=== PATIENT | female | born 1970 | race Caucasian/White ===

== ENCOUNTER 2017-07-10 19:13 | Inpatient (IN) | payer OTHER ==
[~2017-07-10] VITALS: Ht 160 cm; Wt 57.1 kg
[2017-07-10] MEDS ORDERED: ENOX40DI9 SQ (19:37)
[2017-07-10] MEDS ORDERED: CHLO25 IM (19:37)
[2017-07-10] MEDS ORDERED: BENZ1TAB10 PEG (19:37)
[2017-07-10] MEDS ORDERED: LEVE250T55 PEG (19:37)
[2017-07-10] MEDS ORDERED: LACO100 PEG (19:37)
[2017-07-10] MEDS ORDERED: HALO1 PEG (19:37)
[2017-07-10] MEDS ORDERED: BENZ0.5T6 PO (19:37)
[2017-07-10] MEDS ORDERED: METO25 PEG (19:37)
[2017-07-10] MEDS ORDERED: HALO2 PEG (19:37)
[2017-07-10 19:50] LABS: BASOPHILS # (AUTO) 0.07 K/uL (0.00-0.20); BASOPHILS % (AUTO) 0.4 % (0.0-2.0); EOSINOPHILS # (AUTO) 0.06 K/uL (0.00-0.70); EOSINOPHILS % (AUTO) 0.38 % (1.0-6.0); HEMATOCRIT 41.5 % (36-46); HEMOGLOBIN 14.1 g/dL (12.0-16.0); LYMPHOCYTES % (AUTO) 12.4 % (22.0-44.0); MEAN CORPUSCULAR HEMOGLOBIN 34.4 pg (26.0-34.0); MEAN CORPUSCULAR HGB CONC 34.1 G/dL (31.0-37.0); MEAN CORPUSCULAR VOLUME 101 fL (80-100); MONOCYTES # (AUTO) 0.5 K/uL (0.1-1.0); MONOCYTES % (AUTO) 3.1 % (2.0-9.0); NEUTROPHILS # (AUTO) 13.5 K/uL (1.8-7.7); NEUTROPHILS % (AUTO) 83.6 % (40.0-70.0); PLATELET COUNT (AUTO) 292 K/uL (150-450); RED BLOOD CELL COUNT(AUTO) 4.11 MIL/uL (4.00-5.20); RED CELL DISTRIBUTION WIDTH 12.2 % (11.5-14.5)
[2017-07-10 20:00] LABS: ANION GAP 12 mmol/L (8-16); CALCIUM, TOTAL 10.1 mg/dL (8.8-10.5); CARBON DIOXIDE 25 mmol/L (22-29); CHLORIDE 103 mmol/L (98-107); CREATININE 1.17 mg/dL (0.60-1.30); GLOMERULAR FILTR. RATE CALC 50 mL/min (>60); GLUCOSE,RANDOM 114 mg/dL (70-110); SODIUM SERUM 140 mmol/L (136-145); UREA NITROGEN, BLOOD 12 mg/dL (7-18)
[2017-07-10 20:07] LABS: ALANINE AMINOTRANSFERASE 42 U/L (12-78); ALBUMIN 3.3 g/dL (3.4-5.0); ALKALINE PHOSPHATASE 105 U/L (46-116); ASPARTATE AMINOTRANSFERASE 81 U/L (15-37); BILIRUBIN,TOTAL 0.5 mg/dL (0.1-1.0); TOTAL PROTEIN, SERUM 7.4 g/dL (6.4-8.2)
[2017-07-10] MEDS ORDERED: SODIUM CHLORIDE 0.9% 1,000 ML IV ONE (21:30)
[2017-07-10] MEDS ORDERED: ACETAMINOPHEN 500 MG TABLET PO ONE (21:45)
[2017-07-10 22:54] LABS: APPEARANCE,URINE CLOUDY (CLEAR); BILIRUBIN,URINE NEGATIVE (NEGATIVE); GLUCOSE, URINE (UA) NEGATIVE (NEGATIVE); KETONES,URINE 40 mg/dL (NEGATIVE); LEUKOCYTE ESTERASE ,URINE MODERATE (NEGATIVE); NITRATE,URINE NEGATIVE (NEGATIVE); OCCULT BLOOD,URINE LARGE (NEGATIVE); PH,URINE 5.5 (5.0-8.0); PROTEIN,URINE SEE CONFIRM (NEGATIVE); UROBILINOGEN,URINE 0.2 mg/dL (<=1.0)
[2017-07-10 22:59] LABS: AMPHET/METH SCREEN,URINE NEGATIVE (NEGATIVE); BARBITURATE SCREEN, URINE NEGATIVE (NEGATIVE); BENZODIAZEPINES SCREEN,URINE NEGATIVE (NEGATIVE); CANNABINOID SCREEN,URINE NEGATIVE (NEGATIVE); COCAINE SCREEN,URINE NEGATIVE (NEGATIVE); METHADONE SCREEN, URINE NEGATIVE (NEGATIVE); OPIATE SCREEN,URINE NEGATIVE (NEGATIVE)
[2017-07-10] MEDS ORDERED: ALBUTEROL SULFATE 2.5 MG/0.5 ML NEB SOLUTION NEB PRN (23:00)
[2017-07-10] MEDS ORDERED: ACETAMINOPHEN 325 MG TABLET PO PRN (23:00)
[2017-07-10] MEDS ORDERED: ONDANSETRON HCL 4 MG/2 ML VIAL IVP PRN (23:00)
[2017-07-10] MEDS ORDERED: MAGNESIUM HYDROXIDE SUSPENSION 30 ML UDCUP PO PRN (23:00)
[2017-07-10] MEDS ORDERED: LORazepam 2 MG/ML VIAL IVP ONE (23:00)
[2017-07-10] MEDS ORDERED: DEXTROSE 5%-0.45% SODIUM CHL 1,000 ML IV ONE (23:00)
[2017-07-10 23:03] LABS: PHENCYCLIDINE SCREEN,URINE NEGATIVE (NEGATIVE)
[2017-07-10 23:07] LABS: BACTERIA,URINE Few /HPF (None Seen); SQUAMOUS EPITHELIAL CELL,UR Few /LPF (None Seen); SULFOSALICYLIC ACID,URINE 1+ (Negative)
[2017-07-10] MEDS ORDERED: CefTRIAXone 1 GM/DEXTROSE 50 ML IV ONE (23:45)
[2017-07-10] MEDS: LevETIRAcetam 500 MG in DEXTROSE 5%-WATER 100 ML IV SCH (23:50)
[2017-07-11] VITALS (7 sets, daily range): BP systolic 106–153; BP diastolic 56–91
[2017-07-11] MEDS: HEPARIN SODIUM,PORCINE 5,000 UNITS/ML VIAL SQ SCH ×4 (00:02→22:58)
[2017-07-11] MEDS ORDERED: PNEUMOCOCCAL VACCINE POLYVALENT 0.5 ML VIAL [PPSV23] IM ONE (01:15)
[2017-07-11] MEDS ORDERED: INFLUENZA VIRUS VACCINE QVS 2017-18 (3YR+)/PF 60 MCG/0.5 ML SYRINGE IM ONE (01:15)
[2017-07-11] MEDS: DOCUSATE SODIUM 100 MG CAPSULE PO SCH ×2 (09:24→20:14)
[2017-07-11] MEDS: LACOSAMIDE 100 MG TABLET PO SCH ×2 (09:25→20:14)
[2017-07-11] MEDS: LORazepam 2 MG/ML VIAL IVP PRN ×3 (09:27→17:31)
[2017-07-11] MEDS: PANTOPRAZOLE SODIUM 40 MG/VIAL IVP SCH (09:27)
[2017-07-11] MEDS: LevETIRAcetam 500 MG in DEXTROSE 5%-WATER 100 ML IV SCH ×2 (10:54→22:26)
[2017-07-11] MEDS: CefTRIAXone SODIUM 2 GM in DEXTROSE 5%-WATER 50 ML IV SCH (16:45)
[2017-07-12 04:58] VITALS: BP 104/74
[2017-07-12 07:08] VITALS: BP 131/88
[2017-07-12] MEDS: DOCUSATE SODIUM 100 MG CAPSULE PO SCH ×2 (08:34→20:25)
[2017-07-12] MEDS: LACOSAMIDE 100 MG TABLET PO SCH ×2 (08:34→20:25)
[2017-07-12] MEDS: PANTOPRAZOLE SODIUM 40 MG/VIAL IVP SCH (08:34)
[2017-07-12] MEDS: HEPARIN SODIUM,PORCINE 5,000 UNITS/ML VIAL SQ SCH ×2 (08:35→16:49)
[2017-07-12] MEDS: LORazepam 2 MG/ML VIAL IVP PRN ×3 (08:53→17:42)
[2017-07-12 11:27] VITALS: BP 132/75
[2017-07-12] MEDS: LevETIRAcetam 500 MG in DEXTROSE 5%-WATER 100 ML IV SCH ×2 (11:28→21:28)
[2017-07-12 15:01] VITALS: BP 115/79
[2017-07-12 16:19] LABS: BASOPHILS % (AUTO) 0.4 % (0.0-2.0); EOSINOPHILS % (AUTO) 3.4 % (1.0-6.0); HEMATOCRIT 36.7 % (36-46); HEMOGLOBIN 12.5 g/dL (12.0-16.0); LYMPHOCYTES # (AUTO) 2.1 K/uL (1.0-4.8); LYMPHOCYTES % (AUTO) 26.1 % (22.0-44.0); MEAN CORPUSCULAR HEMOGLOBIN 34.6 pg (26.0-34.0); MEAN CORPUSCULAR HGB CONC 34.1 G/dL (31.0-37.0); MEAN CORPUSCULAR VOLUME 101 fL (80-100); MONOCYTES # (AUTO) 0.5 K/uL (0.1-1.0); MONOCYTES % (AUTO) 6.4 % (2.0-9.0); NEUTROPHILS # (AUTO) 5.1 K/uL (1.8-7.7); NEUTROPHILS % (AUTO) 63.7 % (40.0-70.0); PLATELET COUNT (AUTO) 245 K/uL (150-450); RED BLOOD CELL COUNT(AUTO) 3.62 MIL/uL (4.00-5.20); RED CELL DISTRIBUTION WIDTH 11.8 % (11.5-14.5)
[2017-07-12 16:31] LABS: ANION GAP 10 mmol/L (8-16); CALCIUM, TOTAL 9.5 mg/dL (8.8-10.5); CARBON DIOXIDE 28 mmol/L (22-29); CHLORIDE 104 mmol/L (98-107); CREATININE 0.77 mg/dL (0.60-1.30); GLOMERULAR FILTR. RATE CALC > 60 mL/min (>60); GLUCOSE,RANDOM 106 mg/dL (70-110); POTASSIUM 3.8 mmol/L (3.5-5.1); SODIUM SERUM 142 mmol/L (136-145); UREA NITROGEN, BLOOD 8 mg/dL (7-18)
[2017-07-12 16:36] LABS: ALANINE AMINOTRANSFERASE 38 U/L (12-78); ALKALINE PHOSPHATASE 103 U/L (46-116); ASPARTATE AMINOTRANSFERASE 61 U/L (15-37); BILIRUBIN,TOTAL 0.3 mg/dL (0.1-1.0); TOTAL PROTEIN, SERUM 7.1 g/dL (6.4-8.2)
[2017-07-12] MEDS: CefTRIAXone SODIUM 2 GM in DEXTROSE 5%-WATER 50 ML IV SCH (16:49)
[2017-07-12 19:23] VITALS: BP 119/78
[2017-07-12] MEDS ORDERED: RisperiDONE 1 MG TABLET PO SCH (21:00)
[2017-07-13] MEDS: HEPARIN SODIUM,PORCINE 5,000 UNITS/ML VIAL SQ SCH ×4 (00:40→23:54)
[2017-07-13 00:42] VITALS: BP 118/74
[2017-07-13 05:09] VITALS: BP 126/84
[2017-07-13 07:38] VITALS: BP 137/84
[2017-07-13] MEDS ORDERED: MAGNESIUM HYDROXIDE SUSPENSION 30 ML UDCUP NG PRN (07:56)
[2017-07-13] MEDS ORDERED: RisperiDONE 1 MG TABLET NG SCH (07:56)
[2017-07-13] MEDS: LACOSAMIDE 100 MG TABLET NG SCH ×2 (08:10→21:21)
[2017-07-13] MEDS: PANTOPRAZOLE SODIUM 40 MG/VIAL IVP SCH (08:10)
[2017-07-13] MEDS: DOCUSATE SODIUM 100 MG CAPSULE PO SCH ×2 (10:06→21:21)
[2017-07-13] MEDS: LevETIRAcetam 500 MG in DEXTROSE 5%-WATER 100 ML IV SCH ×2 (10:12→22:33)
[2017-07-13 11:08] VITALS: BP 114/79
[2017-07-13] MEDS: LORazepam 2 MG/ML VIAL IVP PRN (13:37)
[2017-07-13 15:01] VITALS: BP 137/67
[2017-07-13] MEDS: CefTRIAXone SODIUM 2 GM in DEXTROSE 5%-WATER 50 ML IV SCH (16:20)
[2017-07-13 19:26] VITALS: BP 138/96
[2017-07-13] MEDS: RisperiDONE 2 MG TABLET NG SCH (21:21)
[2017-07-13] MEDS ORDERED: SODIUM CHLORIDE 0.9% 500 ML IV ONE (22:26)
[2017-07-14] VITALS (7 sets, daily range): BP systolic 106–159; BP diastolic 63–80
[2017-07-14] MEDS: LORazepam 2 MG/ML VIAL IVP PRN (02:00)
[2017-07-14] MEDS: PANTOPRAZOLE SODIUM 40 MG/VIAL IVP SCH (09:15)
[2017-07-14] MEDS: HEPARIN SODIUM,PORCINE 5,000 UNITS/ML VIAL SQ SCH ×2 (09:15→16:17)
[2017-07-14] MEDS: DOCUSATE SODIUM 100 MG CAPSULE PO SCH ×2 (09:34→20:54)
[2017-07-14] MEDS: RisperiDONE 2 MG TABLET NG SCH (09:34)
[2017-07-14] MEDS: LACOSAMIDE 100 MG TABLET NG SCH (09:34)
[2017-07-14] MEDS: LevETIRAcetam 500 MG in DEXTROSE 5%-WATER 100 ML IV SCH (09:58)
[2017-07-14] MEDS: HALOPERIDOL 5 MG TABLET PO PRN ×2 (12:32→18:52)
[2017-07-14] MEDS ORDERED: LOPE1LIQ PO (15:14)
[2017-07-14] MEDS ORDERED: LIPA1CAP28 GT (15:14)
[2017-07-14] MEDS ORDERED: THIA100 GT (15:14)
[2017-07-14] MEDS ORDERED: MULT-735 GT (15:14)
[2017-07-14] MEDS ORDERED: ENOX40DI9 SQ (15:14)
[2017-07-14] MEDS ORDERED: FOLI1 GT (15:14)
[2017-07-14] MEDS ORDERED: PROTEASE GT SCH (15:45)
[2017-07-14] MEDS ORDERED: HALOPERIDOL 2 MG TABLET PEG PRN (15:45)
[2017-07-14] MEDS ORDERED: LIPASE GT SCH (15:45)
[2017-07-14] MEDS ORDERED: AMYLASE GT SCH (15:45)
[2017-07-14] MEDS ORDERED: [UNRECOGNIZED DRUG - OTHER] GT SCH (15:45)
[2017-07-14] MEDS ORDERED: HALOPERIDOL 1 MG TABLET PEG SCH (16:00)
[2017-07-14 16:01] LABS: FREE T4 (FREE THYROXINE) 0.83 ng/dL (0.76-1.46); THYROID STIMULATING HORMONE 3.6 uIU/mL (0.36-3.74)
[2017-07-14] MEDS: METOPROLOL TARTRATE 25 MG TABLET PEG SCH ×2 (16:17→20:54)
[2017-07-14] MEDS: CefTRIAXone SODIUM 2 GM in DEXTROSE 5%-WATER 50 ML IV SCH (16:17)
[2017-07-14] MEDS: AMYLASE/LIPASE/PROTEASE 60/12/38 MU DR CAPSULE GT SCH ×2 (17:14→20:53)
[2017-07-14] MEDS: LevETIRAcetam 500 MG TABLET PEG SCH (20:54)
[2017-07-14] MEDS: RisperiDONE 3 MG TABLET NG SCH (20:55)
[2017-07-14] MEDS: BENZTROPINE MESYLATE 0.5 MG TABLET PO SCH (20:56)
[2017-07-14] MEDS: LACOSAMIDE 100 MG TABLET PEG SCH (20:56)
[2017-07-14] MEDS ORDERED: LevETIRAcetam 1,500 MG in DEXTROSE 5%-WATER 100 ML IV SCH (23:00)
[2017-07-15] MEDS: AMYLASE/LIPASE/PROTEASE 60/12/38 MU DR CAPSULE GT SCH ×6 (00:05→20:34)
[2017-07-15] MEDS: HEPARIN SODIUM,PORCINE 5,000 UNITS/ML VIAL SQ SCH ×3 (00:05→16:46)
[2017-07-15 03:37] VITALS: BP 123/71
[2017-07-15] MEDS: ACETAMINOPHEN 650 MG/20.3 ML SOLUTION UDCUP NG PRN (03:45)
[2017-07-15] MEDS: BENZTROPINE MESYLATE 1 MG TABLET PEG PRN (03:45)
[2017-07-15 07:28] VITALS: BP 112/77
[2017-07-15] MEDS: PANTOPRAZOLE SODIUM 40 MG/VIAL IVP SCH (08:26)
[2017-07-15] MEDS: MULTIVITAMINS, THERAPEUTIC 15 ML UDCUP GT SCH (08:26)
[2017-07-15] MEDS: FOLIC ACID 1 MG TABLET GT SCH (08:27)
[2017-07-15] MEDS: THIAMINE HCL 100 MG TABLET GT SCH (08:27)
[2017-07-15] MEDS: LACOSAMIDE 100 MG TABLET PEG SCH ×2 (08:27→20:33)
[2017-07-15] MEDS: METOPROLOL TARTRATE 25 MG TABLET PEG SCH ×3 (08:28→20:33)
[2017-07-15] MEDS: LevETIRAcetam 500 MG TABLET PEG SCH ×2 (08:28→20:34)
[2017-07-15] MEDS: DOCUSATE SODIUM 100 MG CAPSULE PO SCH ×2 (08:28→20:33)
[2017-07-15] MEDS: RisperiDONE 3 MG TABLET NG SCH ×2 (08:28→20:33)
[2017-07-15] MEDS: LORazepam 2 MG/ML VIAL IVP PRN (08:32)
[2017-07-15 11:38] VITALS: BP 115/75
[2017-07-15 17:30] VITALS: BP 138/72
[2017-07-15] MEDS: CefTRIAXone SODIUM 2 GM in DEXTROSE 5%-WATER 50 ML IV SCH (18:03)
[2017-07-15] MEDS ORDERED: LEVE500T53 PEG (18:21)
[2017-07-15 20:27] VITALS: BP 111/74
[2017-07-15] MEDS: BENZTROPINE MESYLATE 0.5 MG TABLET PO SCH (20:33)
[2017-07-15] MEDS: VALPROIC ACID 250 MG/5 ML SYRUP UDCUP PEG SCH (20:34)
[2017-07-16 00:18] VITALS: BP 98/58
[2017-07-16] MEDS: HEPARIN SODIUM,PORCINE 5,000 UNITS/ML VIAL SQ SCH ×3 (01:20→16:30)
[2017-07-16] MEDS: AMYLASE/LIPASE/PROTEASE 60/12/38 MU DR CAPSULE GT SCH ×6 (01:20→21:36)
[2017-07-16] MEDS: LORazepam 2 MG/ML VIAL IVP PRN (04:29)
[2017-07-16 07:23] VITALS: BP 118/68
[2017-07-16] MEDS: DOCUSATE SODIUM 100 MG CAPSULE PO SCH ×2 (08:54→21:41)
[2017-07-16] MEDS: THIAMINE HCL 100 MG TABLET GT SCH (08:54)
[2017-07-16] MEDS: LevETIRAcetam 500 MG TABLET PEG SCH ×2 (08:55→21:34)
[2017-07-16] MEDS: MULTIVITAMINS, THERAPEUTIC 15 ML UDCUP GT SCH (08:55)
[2017-07-16] MEDS: METOPROLOL TARTRATE 25 MG TABLET PEG SCH ×3 (08:58→21:33)
[2017-07-16] MEDS: RisperiDONE 3 MG TABLET NG SCH ×2 (09:00→21:37)
[2017-07-16] MEDS: FOLIC ACID 1 MG TABLET GT SCH (09:01)
[2017-07-16] MEDS: PANTOPRAZOLE SODIUM 40 MG/VIAL IVP SCH (09:02)
[2017-07-16] MEDS: LACOSAMIDE 100 MG TABLET PEG SCH ×2 (09:02→21:32)
[2017-07-16] MEDS: VALPROIC ACID 250 MG/5 ML SYRUP UDCUP PEG SCH ×2 (09:14→21:41)
[2017-07-16 11:53] VITALS: BP 100/59
[2017-07-16 15:40] VITALS: BP 103/68
[2017-07-16] MEDS: CefTRIAXone SODIUM 2 GM in DEXTROSE 5%-WATER 50 ML IV SCH (16:30)
[2017-07-16 19:40] VITALS: BP 126/75
[2017-07-16 20:55] VITALS: BP 118/78
[2017-07-16] MEDS: BENZTROPINE MESYLATE 0.5 MG TABLET PO SCH (21:31)
[2017-07-17] VITALS (7 sets, daily range): BP systolic 111–126; BP diastolic 67–76
[2017-07-17] MEDS: HEPARIN SODIUM,PORCINE 5,000 UNITS/ML VIAL SQ SCH ×3 (00:49→16:16)
[2017-07-17] MEDS: AMYLASE/LIPASE/PROTEASE 60/12/38 MU DR CAPSULE GT SCH ×6 (00:49→18:34)
[2017-07-17 08:11] LABS: BASOPHILS % (AUTO) 0.4 % (0.0-2.0); EOSINOPHILS % (AUTO) 1.7 % (1.0-6.0); HEMATOCRIT 34.1 % (36-46); HEMOGLOBIN 11.9 g/dL (12.0-16.0); LYMPHOCYTES # (AUTO) 1.3 K/uL (1.0-4.8); LYMPHOCYTES % (AUTO) 17.8 % (22.0-44.0); MEAN CORPUSCULAR HGB CONC 34.9 G/dL (31.0-37.0); MEAN CORPUSCULAR VOLUME 100 fL (80-100); MONOCYTES # (AUTO) 0.5 K/uL (0.1-1.0); MONOCYTES % (AUTO) 6.3 % (2.0-9.0); NEUTROPHILS # (AUTO) 5.3 K/uL (1.8-7.7); NEUTROPHILS % (AUTO) 73.8 % (40.0-70.0); PLATELET COUNT (AUTO) 232 K/uL (150-450); RED BLOOD CELL COUNT(AUTO) 3.39 MIL/uL (4.00-5.20)
[2017-07-17] MEDS: MULTIVITAMINS, THERAPEUTIC 15 ML UDCUP GT SCH (08:47)
[2017-07-17] MEDS: PANTOPRAZOLE SODIUM 40 MG/VIAL IVP SCH (08:47)
[2017-07-17] MEDS: VALPROIC ACID 250 MG/5 ML SYRUP UDCUP PEG SCH ×2 (08:48→20:29)
[2017-07-17] MEDS: LevETIRAcetam 500 MG TABLET PEG SCH ×2 (08:48→20:29)
[2017-07-17] MEDS: FOLIC ACID 1 MG TABLET GT SCH (08:49)
[2017-07-17] MEDS: RisperiDONE 3 MG TABLET NG SCH ×2 (08:49→20:29)
[2017-07-17] MEDS: DOCUSATE SODIUM 100 MG CAPSULE PO SCH ×2 (08:49→20:29)
[2017-07-17] MEDS: METOPROLOL TARTRATE 25 MG TABLET PEG SCH ×3 (08:49→20:29)
[2017-07-17] MEDS: THIAMINE HCL 100 MG TABLET GT SCH (08:49)
[2017-07-17] MEDS: LACOSAMIDE 100 MG TABLET PEG SCH ×2 (08:50→20:29)
[2017-07-17] MEDS ORDERED: SODIUM CHLORIDE 0.9% 50 ML ONE (15:06)
[2017-07-17] MEDS: CefTRIAXone SODIUM 2 GM in DEXTROSE 5%-WATER 50 ML IV SCH (15:21)
[2017-07-17] MEDS: ACETAMINOPHEN 650 MG/20.3 ML SOLUTION UDCUP NG PRN (18:25)
[2017-07-17] MEDS: BENZTROPINE MESYLATE 0.5 MG TABLET PO SCH (20:29)
[2017-07-17] MEDS: LORazepam 2 MG/ML VIAL IVP PRN (22:15)
[2017-07-18] VITALS (7 sets, daily range): BP systolic 96–159; BP diastolic 45–87
[2017-07-18] MEDS: HEPARIN SODIUM,PORCINE 5,000 UNITS/ML VIAL SQ SCH ×3 (00:42→15:12)
[2017-07-18] MEDS: AMYLASE/LIPASE/PROTEASE 60/12/38 MU DR CAPSULE GT SCH ×6 (00:42→19:54)
[2017-07-18 06:56] LABS: BASOPHILS % (AUTO) 0.4 % (0.0-2.0); EOSINOPHILS % (AUTO) 2.7 % (1.0-6.0); HEMATOCRIT 35.1 % (36-46); HEMOGLOBIN 12.3 g/dL (12.0-16.0); LYMPHOCYTES # (AUTO) 1.7 K/uL (1.0-4.8); LYMPHOCYTES % (AUTO) 22.7 % (22.0-44.0); MEAN CORPUSCULAR HEMOGLOBIN 35.2 pg (26.0-34.0); MEAN CORPUSCULAR VOLUME 101 fL (80-100); MONOCYTES # (AUTO) 0.5 K/uL (0.1-1.0); MONOCYTES % (AUTO) 6.6 % (2.0-9.0); NEUTROPHILS % (AUTO) 67.6 % (40.0-70.0); PLATELET COUNT (AUTO) 228 K/uL (150-450); RED BLOOD CELL COUNT(AUTO) 3.48 MIL/uL (4.00-5.20); RED CELL DISTRIBUTION WIDTH 12.1 % (11.5-14.5)
[2017-07-18 07:13] LABS: ALANINE AMINOTRANSFERASE 18 U/L (12-78); ALBUMIN 2.6 g/dL (3.4-5.0); ALKALINE PHOSPHATASE 91 U/L (46-116); ANION GAP 7 mmol/L (8-16); ASPARTATE AMINOTRANSFERASE 25 U/L (15-37); BILIRUBIN,TOTAL 0.2 mg/dL (0.1-1.0); CALCIUM, TOTAL 9.3 mg/dL (8.8-10.5); CARBON DIOXIDE 30 mmol/L (22-29); CHLORIDE 100 mmol/L (98-107); CREATININE 0.75 mg/dL (0.60-1.30); GLOMERULAR FILTR. RATE CALC > 60 mL/min (>60); GLUCOSE,RANDOM 114 mg/dL (70-110); POTASSIUM 4.2 mmol/L (3.5-5.1); SODIUM SERUM 137 mmol/L (136-145); TOTAL PROTEIN, SERUM 6.8 g/dL (6.4-8.2); UREA NITROGEN, BLOOD 10 mg/dL (7-18); VALPROIC ACID 68 mcg/mL (50-100)
[2017-07-18] MEDS: LevETIRAcetam 500 MG TABLET PEG SCH ×2 (08:35→20:44)
[2017-07-18] MEDS: MULTIVITAMINS, THERAPEUTIC 15 ML UDCUP GT SCH (08:36)
[2017-07-18] MEDS: VALPROIC ACID 250 MG/5 ML SYRUP UDCUP PEG SCH ×2 (08:36→20:44)
[2017-07-18] MEDS: DOCUSATE SODIUM 100 MG CAPSULE PO SCH ×2 (08:36→20:44)
[2017-07-18] MEDS: FOLIC ACID 1 MG TABLET GT SCH (08:36)
[2017-07-18] MEDS: THIAMINE HCL 100 MG TABLET GT SCH (08:36)
[2017-07-18] MEDS: PANTOPRAZOLE SODIUM 40 MG/VIAL IVP SCH (08:37)
[2017-07-18] MEDS: LACOSAMIDE 100 MG TABLET PEG SCH ×2 (08:37→20:45)
[2017-07-18] MEDS: METOPROLOL TARTRATE 25 MG TABLET PEG SCH ×3 (08:42→20:45)
[2017-07-18] MEDS: RisperiDONE 3 MG TABLET NG SCH ×2 (08:52→20:44)
[2017-07-18] MEDS: CefTRIAXone SODIUM 2 GM in DEXTROSE 5%-WATER 50 ML IV SCH (15:11)
[2017-07-18] MEDS: ACETAMINOPHEN 650 MG/20.3 ML SOLUTION UDCUP NG PRN (15:12)
[2017-07-18] MEDS: HALOPERIDOL 5 MG TABLET PO PRN (15:41)
[2017-07-18] MEDS ORDERED: SODIUM CHLORIDE 0.9% 500 ML IV ONE (16:06)
[2017-07-18] MEDS: LORazepam 2 MG/ML VIAL IVP PRN (18:40)
[2017-07-18] MEDS: BENZTROPINE MESYLATE 0.5 MG TABLET PO SCH (20:45)
[2017-07-19] MEDS: HEPARIN SODIUM,PORCINE 5,000 UNITS/ML VIAL SQ SCH ×3 (00:02→15:55)
[2017-07-19 00:10] VITALS: BP 96/63
[2017-07-19 04:00] VITALS: BP 118/82
[2017-07-19] MEDS: AMYLASE/LIPASE/PROTEASE 60/12/38 MU DR CAPSULE GT SCH ×6 (04:01→19:59)
[2017-07-19 08:04] VITALS: BP 129/74
[2017-07-19] MEDS: DOCUSATE SODIUM 100 MG CAPSULE PO SCH ×2 (08:29→20:34)
[2017-07-19] MEDS: BENZTROPINE MESYLATE 1 MG TABLET PEG PRN (08:29)
[2017-07-19] MEDS: LevETIRAcetam 500 MG TABLET PEG SCH ×2 (08:30→20:34)
[2017-07-19] MEDS: VALPROIC ACID 250 MG/5 ML SYRUP UDCUP PEG SCH ×2 (08:30→20:35)
[2017-07-19] MEDS: METOPROLOL TARTRATE 25 MG TABLET PEG SCH ×3 (08:31→20:34)
[2017-07-19] MEDS: FOLIC ACID 1 MG TABLET GT SCH (08:31)
[2017-07-19] MEDS: THIAMINE HCL 100 MG TABLET GT SCH (08:31)
[2017-07-19] MEDS: RisperiDONE 3 MG TABLET NG SCH ×2 (08:32→20:34)
[2017-07-19] MEDS: LACOSAMIDE 100 MG TABLET PEG SCH ×2 (08:32→20:35)
[2017-07-19] MEDS: PANTOPRAZOLE SODIUM 40 MG/VIAL IVP SCH (08:34)
[2017-07-19] MEDS: MULTIVITAMINS, THERAPEUTIC 15 ML UDCUP GT SCH (10:19)
[2017-07-19 12:50] VITALS: BP 126/84
[2017-07-19 15:26] VITALS: BP 105/74
[2017-07-19] MEDS: CefTRIAXone SODIUM 2 GM in DEXTROSE 5%-WATER 50 ML IV SCH (15:54)
[2017-07-19 19:54] VITALS: BP 132/93
[2017-07-19] MEDS: ACETAMINOPHEN 650 MG/20.3 ML SOLUTION UDCUP NG PRN (19:59)
[2017-07-19] MEDS: BENZTROPINE MESYLATE 0.5 MG TABLET PO SCH (20:34)
[2017-07-19] MEDS: LORazepam 2 MG/ML VIAL IVP PRN (21:12)
[2017-07-20] MEDS: HEPARIN SODIUM,PORCINE 5,000 UNITS/ML VIAL SQ SCH ×4 (00:03→23:54)
[2017-07-20] MEDS: AMYLASE/LIPASE/PROTEASE 60/12/38 MU DR CAPSULE GT SCH ×7 (00:04→23:54)
[2017-07-20 00:25] VITALS: BP 104/62
[2017-07-20 04:01] VITALS: BP 107/67
[2017-07-20 07:34] VITALS: BP 124/73
[2017-07-20] MEDS: MULTIVITAMINS, THERAPEUTIC 15 ML UDCUP GT SCH (08:45)
[2017-07-20] MEDS: FOLIC ACID 1 MG TABLET GT SCH (08:45)
[2017-07-20] MEDS: RisperiDONE 3 MG TABLET NG SCH ×2 (08:45→20:58)
[2017-07-20] MEDS: PANTOPRAZOLE SODIUM 40 MG/VIAL IVP SCH (08:45)
[2017-07-20] MEDS: THIAMINE HCL 100 MG TABLET GT SCH (08:45)
[2017-07-20] MEDS: LevETIRAcetam 500 MG TABLET PEG SCH ×2 (08:45→20:58)
[2017-07-20] MEDS: METOPROLOL TARTRATE 25 MG TABLET PEG SCH ×3 (08:45→21:00)
[2017-07-20] MEDS: VALPROIC ACID 250 MG/5 ML SYRUP UDCUP PEG SCH ×2 (08:45→20:57)
[2017-07-20] MEDS: DOCUSATE SODIUM 100 MG CAPSULE PO SCH ×2 (08:46→20:58)
[2017-07-20] MEDS: LACOSAMIDE 100 MG TABLET PEG SCH ×2 (08:46→20:59)
[2017-07-20] MEDS: LORazepam 2 MG/ML VIAL IVP PRN ×3 (11:25→20:30)
[2017-07-20] MEDS: CefTRIAXone SODIUM 2 GM in DEXTROSE 5%-WATER 50 ML IV SCH (15:23)
[2017-07-20 15:34] VITALS: BP 109/75
[2017-07-20 19:30] VITALS: BP 112/69
[2017-07-20] MEDS: BENZTROPINE MESYLATE 0.5 MG TABLET PO SCH (20:58)
[2017-07-20 23:30] VITALS: BP 94/64
[2017-07-21 04:00] VITALS: BP 116/66
[2017-07-21] MEDS: AMYLASE/LIPASE/PROTEASE 60/12/38 MU DR CAPSULE GT SCH ×5 (04:05→19:44)
[2017-07-21 07:24] VITALS: BP 97/69
[2017-07-21] MEDS: THIAMINE HCL 100 MG TABLET GT SCH (07:48)
[2017-07-21] MEDS: METOPROLOL TARTRATE 25 MG TABLET PEG SCH ×3 (07:48→19:44)
[2017-07-21] MEDS: MULTIVITAMINS, THERAPEUTIC 15 ML UDCUP GT SCH (07:48)
[2017-07-21] MEDS: RisperiDONE 3 MG TABLET NG SCH ×2 (07:48→19:44)
[2017-07-21] MEDS: LACOSAMIDE 100 MG TABLET PEG SCH ×2 (07:48→19:45)
[2017-07-21] MEDS: HEPARIN SODIUM,PORCINE 5,000 UNITS/ML VIAL SQ SCH ×2 (07:48→15:13)
[2017-07-21] MEDS: LevETIRAcetam 500 MG TABLET PEG SCH ×2 (07:48→19:44)
[2017-07-21] MEDS: FOLIC ACID 1 MG TABLET GT SCH (07:48)
[2017-07-21] MEDS: PANTOPRAZOLE SODIUM 40 MG/VIAL IVP SCH (07:48)
[2017-07-21] MEDS: VALPROIC ACID 250 MG/5 ML SYRUP UDCUP PEG SCH ×2 (07:49→19:44)
[2017-07-21] MEDS: LORazepam 2 MG/ML VIAL IVP PRN ×3 (07:49→15:13)
[2017-07-21] MEDS: DOCUSATE SODIUM 100 MG CAPSULE PO SCH ×2 (07:53→19:44)
[2017-07-21 11:15] VITALS: BP 115/64
[2017-07-21] MEDS: CefTRIAXone SODIUM 2 GM in DEXTROSE 5%-WATER 50 ML IV SCH (15:12)
[2017-07-21 16:28] VITALS: BP 131/74
[2017-07-21] MEDS: HALOPERIDOL 5 MG TABLET PO PRN (18:37)
[2017-07-21] MEDS: BENZTROPINE MESYLATE 1 MG TABLET PEG PRN (19:44)
[2017-07-21] MEDS: BENZTROPINE MESYLATE 0.5 MG TABLET PO SCH (19:44)
[2017-07-21 20:05] VITALS: BP 127/78
[2017-07-22 00:38] VITALS: BP 109/60
[2017-07-22] MEDS: HEPARIN SODIUM,PORCINE 5,000 UNITS/ML VIAL SQ SCH ×4 (00:40→23:53)
[2017-07-22] MEDS: AMYLASE/LIPASE/PROTEASE 60/12/38 MU DR CAPSULE GT SCH ×6 (00:40→21:00)
[2017-07-22 07:14] VITALS: BP 96/54
[2017-07-22] MEDS: LACOSAMIDE 100 MG TABLET PEG SCH ×2 (09:09→21:00)
[2017-07-22] MEDS: VALPROIC ACID 250 MG/5 ML SYRUP UDCUP PEG SCH ×2 (09:09→21:00)
[2017-07-22] MEDS: PANTOPRAZOLE SODIUM 40 MG/VIAL IVP SCH (09:09)
[2017-07-22] MEDS: DOCUSATE SODIUM 100 MG CAPSULE PO SCH ×2 (09:09→21:00)
[2017-07-22] MEDS: LevETIRAcetam 500 MG TABLET PEG SCH ×2 (09:09→21:00)
[2017-07-22] MEDS: THIAMINE HCL 100 MG TABLET GT SCH (09:09)
[2017-07-22] MEDS: MULTIVITAMINS, THERAPEUTIC 15 ML UDCUP GT SCH (09:09)
[2017-07-22] MEDS: RisperiDONE 3 MG TABLET NG SCH ×2 (09:09→21:00)
[2017-07-22] MEDS: METOPROLOL TARTRATE 25 MG TABLET PEG SCH ×3 (09:09→21:00)
[2017-07-22] MEDS: FOLIC ACID 1 MG TABLET GT SCH (09:10)
[2017-07-22 11:44] VITALS: BP 96/74
[2017-07-22] MEDS: HALOPERIDOL 5 MG TABLET PO PRN (12:16)
[2017-07-22] MEDS: CefTRIAXone SODIUM 2 GM in DEXTROSE 5%-WATER 50 ML IV SCH (14:51)
[2017-07-22] MEDS: LORazepam 2 MG/ML VIAL IVP PRN ×2 (14:51→22:01)
[2017-07-22 20:02] VITALS: BP 117/75
[2017-07-22] MEDS: BENZTROPINE MESYLATE 0.5 MG TABLET PO SCH (21:00)
[2017-07-22] MEDS ORDERED: ALBUTEROL SULFATE 2.5 MG/0.5 ML NEB SOLUTION NEB PRN (21:15)
[2017-07-23] VITALS (7 sets, daily range): BP systolic 91–133; BP diastolic 54–80
[2017-07-23] MEDS: AMYLASE/LIPASE/PROTEASE 60/12/38 MU DR CAPSULE GT SCH ×6 (04:48→20:03)
[2017-07-23] MEDS: PANTOPRAZOLE SODIUM 40 MG/VIAL IVP SCH (08:20)
[2017-07-23] MEDS: MULTIVITAMINS, THERAPEUTIC 15 ML UDCUP GT SCH (08:21)
[2017-07-23] MEDS: RisperiDONE 3 MG TABLET NG SCH ×2 (08:21→20:05)
[2017-07-23] MEDS: HEPARIN SODIUM,PORCINE 5,000 UNITS/ML VIAL SQ SCH ×2 (08:21→16:15)
[2017-07-23] MEDS: FOLIC ACID 1 MG TABLET GT SCH (08:21)
[2017-07-23] MEDS: THIAMINE HCL 100 MG TABLET GT SCH (08:21)
[2017-07-23] MEDS: VALPROIC ACID 250 MG/5 ML SYRUP UDCUP PEG SCH ×2 (08:21→20:05)
[2017-07-23] MEDS: DOCUSATE SODIUM 100 MG CAPSULE PO SCH ×2 (08:21→20:05)
[2017-07-23] MEDS: LevETIRAcetam 500 MG TABLET PEG SCH ×2 (08:22→20:04)
[2017-07-23] MEDS: LACOSAMIDE 100 MG TABLET PEG SCH ×2 (08:22→20:05)
[2017-07-23] MEDS: METOPROLOL TARTRATE 25 MG TABLET PEG SCH ×4 (08:24→20:05)
[2017-07-23] MEDS: LORazepam 2 MG/ML VIAL IVP PRN ×2 (12:15→18:03)
[2017-07-23] MEDS: CefTRIAXone SODIUM 2 GM in DEXTROSE 5%-WATER 50 ML IV SCH (16:15)
[2017-07-23] MEDS: HALOPERIDOL 5 MG TABLET PO PRN (20:03)
[2017-07-23] MEDS: BENZTROPINE MESYLATE 0.5 MG TABLET PO SCH (20:05)
[2017-07-24] MEDS: AMYLASE/LIPASE/PROTEASE 60/12/38 MU DR CAPSULE GT SCH ×6 (00:21→20:04)
[2017-07-24] MEDS: HEPARIN SODIUM,PORCINE 5,000 UNITS/ML VIAL SQ SCH ×3 (00:21→16:19)
[2017-07-24 05:00] VITALS: BP 100/67
[2017-07-24 07:31] VITALS: BP 102/55
[2017-07-24] MEDS: LORazepam 2 MG/ML VIAL IVP PRN ×2 (08:03→17:30)
[2017-07-24] MEDS: PANTOPRAZOLE SODIUM 40 MG/VIAL IVP SCH (08:40)
[2017-07-24] MEDS: THIAMINE HCL 100 MG TABLET GT SCH (08:40)
[2017-07-24] MEDS: FOLIC ACID 1 MG TABLET GT SCH (08:40)
[2017-07-24] MEDS: RisperiDONE 3 MG TABLET NG SCH ×2 (08:40→20:05)
[2017-07-24] MEDS: DOCUSATE SODIUM 100 MG CAPSULE PO SCH ×2 (08:40→20:05)
[2017-07-24] MEDS: LevETIRAcetam 500 MG TABLET PEG SCH ×2 (08:40→20:05)
[2017-07-24] MEDS: METOPROLOL TARTRATE 25 MG TABLET PEG SCH ×3 (08:41→20:08)
[2017-07-24] MEDS: MULTIVITAMINS, THERAPEUTIC 15 ML UDCUP GT SCH (08:41)
[2017-07-24] MEDS: VALPROIC ACID 250 MG/5 ML SYRUP UDCUP PEG SCH ×2 (08:41→20:04)
[2017-07-24] MEDS: LACOSAMIDE 100 MG TABLET PEG SCH ×2 (08:42→20:05)
[2017-07-24] MEDS: HALOPERIDOL 5 MG TABLET PO PRN ×2 (13:00→16:19)
[2017-07-24 13:21] VITALS: BP 110/65
[2017-07-24 15:47] VITALS: BP 106/76
[2017-07-24] MEDS: CefTRIAXone SODIUM 2 GM in DEXTROSE 5%-WATER 50 ML IV SCH (16:19)
[2017-07-24] MEDS: BENZTROPINE MESYLATE 0.5 MG TABLET PO SCH (20:05)
[2017-07-24 20:15] VITALS: BP 131/75
[2017-07-25] MEDS: HEPARIN SODIUM,PORCINE 5,000 UNITS/ML VIAL SQ SCH ×3 (00:22→15:55)
[2017-07-25] MEDS: AMYLASE/LIPASE/PROTEASE 60/12/38 MU DR CAPSULE GT SCH ×6 (00:22→20:38)
[2017-07-25 05:24] VITALS: BP 113/82
[2017-07-25] MEDS: LORazepam 2 MG/ML VIAL IVP PRN ×4 (06:27→17:49)
[2017-07-25 07:38] VITALS: BP 104/63
[2017-07-25] MEDS: DOCUSATE SODIUM 100 MG CAPSULE PO SCH ×2 (09:00→20:37)
[2017-07-25] MEDS: VALPROIC ACID 250 MG/5 ML SYRUP UDCUP PEG SCH ×2 (09:28→20:38)
[2017-07-25] MEDS: PANTOPRAZOLE SODIUM 40 MG/VIAL IVP SCH (09:28)
[2017-07-25] MEDS: MULTIVITAMINS, THERAPEUTIC 15 ML UDCUP GT SCH (09:28)
[2017-07-25] MEDS: LevETIRAcetam 500 MG TABLET PEG SCH ×2 (09:28→20:38)
[2017-07-25] MEDS: FOLIC ACID 1 MG TABLET GT SCH (09:29)
[2017-07-25] MEDS: RisperiDONE 3 MG TABLET NG SCH ×2 (09:29→20:39)
[2017-07-25] MEDS: THIAMINE HCL 100 MG TABLET GT SCH (09:29)
[2017-07-25] MEDS: LACOSAMIDE 100 MG TABLET PEG SCH ×2 (09:29→20:38)
[2017-07-25] MEDS: METOPROLOL TARTRATE 25 MG TABLET PEG SCH ×3 (09:29→20:38)
[2017-07-25] MEDS: HALOPERIDOL 5 MG TABLET PO PRN (09:30)
[2017-07-25 11:20] VITALS: BP 126/83
[2017-07-25 15:37] VITALS: BP 120/80
[2017-07-25] MEDS: CefTRIAXone SODIUM 2 GM in DEXTROSE 5%-WATER 50 ML IV SCH (15:55)
[2017-07-25 20:29] VITALS: BP 113/69
[2017-07-25] MEDS: BENZTROPINE MESYLATE 0.5 MG TABLET PO SCH (20:38)
[2017-07-26] MEDS: AMYLASE/LIPASE/PROTEASE 60/12/38 MU DR CAPSULE GT SCH ×6 (00:24→19:54)
[2017-07-26] MEDS: HEPARIN SODIUM,PORCINE 5,000 UNITS/ML VIAL SQ SCH ×3 (00:24→15:14)
[2017-07-26 00:34] VITALS: BP 92/51
[2017-07-26 03:20] VITALS: BP 92/53
[2017-07-26 07:47] VITALS: BP 130/66
[2017-07-26] MEDS: LORazepam 2 MG/ML VIAL IVP PRN ×3 (08:10→15:12)
[2017-07-26] MEDS: PANTOPRAZOLE SODIUM 40 MG/VIAL IVP SCH (08:10)
[2017-07-26] MEDS: VALPROIC ACID 250 MG/5 ML SYRUP UDCUP PEG SCH ×2 (08:11→20:00)
[2017-07-26] MEDS: RisperiDONE 3 MG TABLET NG SCH ×2 (08:11→20:00)
[2017-07-26] MEDS: THIAMINE HCL 100 MG TABLET GT SCH (08:12)
[2017-07-26] MEDS: MULTIVITAMINS, THERAPEUTIC 15 ML UDCUP GT SCH (08:12)
[2017-07-26] MEDS: DOCUSATE SODIUM 100 MG CAPSULE PO SCH ×2 (08:12→20:00)
[2017-07-26] MEDS: LACOSAMIDE 100 MG TABLET PEG SCH ×2 (08:12→20:00)
[2017-07-26] MEDS: FOLIC ACID 1 MG TABLET GT SCH (08:12)
[2017-07-26] MEDS: LevETIRAcetam 500 MG TABLET PEG SCH ×2 (08:13→20:00)
[2017-07-26] MEDS: METOPROLOL TARTRATE 25 MG TABLET PEG SCH ×3 (08:14→21:00)
[2017-07-26] MEDS: LORazepam 1 MG TABLET PO PRN (09:53)
[2017-07-26 11:29] VITALS: BP 117/68
[2017-07-26] MEDS: HALOPERIDOL 5 MG TABLET PO PRN (11:39)
[2017-07-26 15:16] VITALS: BP 123/63
[2017-07-26] MEDS: CefTRIAXone SODIUM 2 GM in DEXTROSE 5%-WATER 50 ML IV SCH (15:17)
[2017-07-26 19:42] VITALS: BP 104/67
[2017-07-26] MEDS: BENZTROPINE MESYLATE 0.5 MG TABLET PO SCH (20:00)
[2017-07-27] VITALS (7 sets, daily range): BP systolic 90–120; BP diastolic 55–72
[2017-07-27] MEDS: AMYLASE/LIPASE/PROTEASE 60/12/38 MU DR CAPSULE GT SCH ×7 (00:09→23:26)
[2017-07-27] MEDS: HEPARIN SODIUM,PORCINE 5,000 UNITS/ML VIAL SQ SCH ×4 (00:10→23:26)
[2017-07-27] MEDS: FOLIC ACID 1 MG TABLET GT SCH (08:24)
[2017-07-27] MEDS: THIAMINE HCL 100 MG TABLET GT SCH (08:24)
[2017-07-27] MEDS: PANTOPRAZOLE SODIUM 40 MG/VIAL IVP SCH (08:24)
[2017-07-27] MEDS: METOPROLOL TARTRATE 25 MG TABLET PEG SCH ×3 (08:24→21:00)
[2017-07-27] MEDS: RisperiDONE 3 MG TABLET NG SCH ×2 (08:24→19:54)
[2017-07-27] MEDS: LevETIRAcetam 500 MG TABLET PEG SCH ×2 (08:24→19:59)
[2017-07-27] MEDS: LORazepam 2 MG/ML VIAL IVP PRN ×2 (08:24→20:00)
[2017-07-27] MEDS: MULTIVITAMINS, THERAPEUTIC 15 ML UDCUP GT SCH (08:25)
[2017-07-27] MEDS: VALPROIC ACID 250 MG/5 ML SYRUP UDCUP PEG SCH ×2 (08:25→19:54)
[2017-07-27] MEDS: DOCUSATE SODIUM 100 MG CAPSULE PO SCH ×2 (08:26→21:00)
[2017-07-27] MEDS: LACOSAMIDE 100 MG TABLET PEG SCH ×2 (08:26→19:55)
[2017-07-27] MEDS: HALOPERIDOL 5 MG TABLET PO PRN (08:27)
[2017-07-27] MEDS: CefTRIAXone SODIUM 2 GM in DEXTROSE 5%-WATER 50 ML IV SCH (16:27)
[2017-07-27] MEDS: BENZTROPINE MESYLATE 0.5 MG TABLET PO SCH (19:55)
[2017-07-28] MEDS: AMYLASE/LIPASE/PROTEASE 60/12/38 MU DR CAPSULE GT SCH ×6 (03:50→20:23)
[2017-07-28] MEDS: LORazepam 2 MG/ML VIAL IVP PRN ×3 (03:51→16:23)
[2017-07-28 04:00] VITALS: BP 112/66
[2017-07-28] MEDS: FOLIC ACID 1 MG TABLET GT SCH (08:11)
[2017-07-28] MEDS: LevETIRAcetam 500 MG TABLET PEG SCH ×2 (08:11→20:24)
[2017-07-28] MEDS: DOCUSATE SODIUM 100 MG CAPSULE PO SCH ×2 (08:11→20:33)
[2017-07-28] MEDS: HEPARIN SODIUM,PORCINE 5,000 UNITS/ML VIAL SQ SCH ×2 (08:12→15:55)
[2017-07-28] MEDS: VALPROIC ACID 250 MG/5 ML SYRUP UDCUP PEG SCH ×2 (08:12→20:25)
[2017-07-28] MEDS: PANTOPRAZOLE SODIUM 40 MG/VIAL IVP SCH (08:12)
[2017-07-28] MEDS: MULTIVITAMINS, THERAPEUTIC 15 ML UDCUP GT SCH (08:13)
[2017-07-28] MEDS: RisperiDONE 3 MG TABLET NG SCH ×2 (08:14→20:24)
[2017-07-28] MEDS: LACOSAMIDE 100 MG TABLET PEG SCH ×2 (08:14→20:24)
[2017-07-28] MEDS: THIAMINE HCL 100 MG TABLET GT SCH (08:14)
[2017-07-28 08:17] VITALS: BP 94/54
[2017-07-28] MEDS: METOPROLOL TARTRATE 25 MG TABLET PEG SCH ×3 (08:17→20:24)
[2017-07-28] MEDS: CefTRIAXone SODIUM 2 GM in DEXTROSE 5%-WATER 50 ML IV SCH (15:55)
[2017-07-28 16:00] VITALS: BP 130/78
[2017-07-28] MEDS: ACETAMINOPHEN 650 MG/20.3 ML SOLUTION UDCUP NG PRN (16:18)
[2017-07-28] MEDS: LORazepam 1 MG TABLET PO PRN ×2 (18:14→20:24)
[2017-07-28 19:30] VITALS: BP 116/48
[2017-07-28] MEDS: BENZTROPINE MESYLATE 0.5 MG TABLET PO SCH (20:24)
[2017-07-28 23:00] VITALS: BP 95/57
[2017-07-29] MEDS: HEPARIN SODIUM,PORCINE 5,000 UNITS/ML VIAL SQ SCH ×3 (00:11→16:17)
[2017-07-29] MEDS: AMYLASE/LIPASE/PROTEASE 60/12/38 MU DR CAPSULE GT SCH ×6 (00:11→20:00)
[2017-07-29 04:00] VITALS: BP 103/62
[2017-07-29] MEDS: METOPROLOL TARTRATE 25 MG TABLET PEG SCH ×3 (07:40→21:00)
[2017-07-29] MEDS: FOLIC ACID 1 MG TABLET GT SCH (07:40)
[2017-07-29] MEDS: THIAMINE HCL 100 MG TABLET GT SCH (07:40)
[2017-07-29] MEDS: DOCUSATE SODIUM 100 MG CAPSULE PO SCH ×2 (07:40→21:00)
[2017-07-29] MEDS: RisperiDONE 3 MG TABLET NG SCH ×2 (07:40→21:00)
[2017-07-29] MEDS: PANTOPRAZOLE SODIUM 40 MG/VIAL IVP SCH (07:40)
[2017-07-29] MEDS: LevETIRAcetam 500 MG TABLET PEG SCH ×2 (07:40→21:00)
[2017-07-29] MEDS: MULTIVITAMINS, THERAPEUTIC 15 ML UDCUP GT SCH (07:41)
[2017-07-29] MEDS: LACOSAMIDE 100 MG TABLET PEG SCH ×2 (07:41→21:00)
[2017-07-29] MEDS: VALPROIC ACID 250 MG/5 ML SYRUP UDCUP PEG SCH ×2 (07:41→21:00)
[2017-07-29] MEDS: LORazepam 2 MG/ML VIAL IVP PRN ×3 (07:55→16:50)
[2017-07-29 07:58] VITALS: BP 132/67
[2017-07-29] MEDS: ACETAMINOPHEN 650 MG/20.3 ML SOLUTION UDCUP NG PRN (08:00)
[2017-07-29 12:06] VITALS: BP 107/69
[2017-07-29 16:12] VITALS: BP 95/59
[2017-07-29 19:30] VITALS: BP 104/66
[2017-07-29] MEDS: BENZTROPINE MESYLATE 0.5 MG TABLET PO SCH (21:00)
[2017-07-29 23:30] VITALS: BP 106/64
[2017-07-30] MEDS: HEPARIN SODIUM,PORCINE 5,000 UNITS/ML VIAL SQ SCH ×4 (00:58→23:09)
[2017-07-30 04:00] VITALS: BP 104/62
[2017-07-30] MEDS: AMYLASE/LIPASE/PROTEASE 60/12/38 MU DR CAPSULE GT SCH ×7 (04:00→23:09)
[2017-07-30] MEDS: LORazepam 2 MG/ML VIAL IVP PRN ×2 (08:30→19:46)
[2017-07-30 09:00] VITALS: BP 99/65
[2017-07-30] MEDS: LACOSAMIDE 100 MG TABLET PEG SCH ×2 (09:45→20:22)
[2017-07-30] MEDS: VALPROIC ACID 250 MG/5 ML SYRUP UDCUP PEG SCH ×2 (09:45→20:21)
[2017-07-30] MEDS: LevETIRAcetam 500 MG TABLET PEG SCH ×2 (09:46→20:22)
[2017-07-30] MEDS: DOCUSATE SODIUM 100 MG CAPSULE PO SCH ×2 (09:46→20:21)
[2017-07-30] MEDS: RisperiDONE 3 MG TABLET NG SCH ×2 (09:46→20:22)
[2017-07-30] MEDS: THIAMINE HCL 100 MG TABLET GT SCH (09:46)
[2017-07-30] MEDS: PANTOPRAZOLE SODIUM 40 MG/VIAL IVP SCH (09:47)
[2017-07-30] MEDS: FOLIC ACID 1 MG TABLET GT SCH (09:47)
[2017-07-30] MEDS: MULTIVITAMINS, THERAPEUTIC 15 ML UDCUP GT SCH (09:47)
[2017-07-30] MEDS: HALOPERIDOL 5 MG TABLET PO PRN (09:48)
[2017-07-30] MEDS: METOPROLOL TARTRATE 25 MG TABLET PEG SCH (09:48)
[2017-07-30 11:15] VITALS: BP 105/71
[2017-07-30] MEDS: LORazepam 1 MG TABLET PO PRN (14:25)
[2017-07-30] MEDS: BENZTROPINE MESYLATE 1 MG TABLET PEG PRN ×2 (14:25→20:22)
[2017-07-30 16:00] VITALS: BP 122/51
[2017-07-30] MEDS: BENZTROPINE MESYLATE 0.5 MG TABLET PO SCH (20:24)
[2017-07-30 20:27] VITALS: BP 107/71
[2017-07-30] MEDS: ACETAMINOPHEN 650 MG/20.3 ML SOLUTION UDCUP NG PRN (20:52)
[2017-07-30 23:18] VITALS: BP 106/69
[2017-07-31 03:40] VITALS: BP 116/67
[2017-07-31] MEDS: LORazepam 2 MG/ML VIAL IVP PRN ×4 (04:02→22:28)
[2017-07-31] MEDS: AMYLASE/LIPASE/PROTEASE 60/12/38 MU DR CAPSULE GT SCH ×6 (04:02→23:29)
[2017-07-31 07:41] VITALS: BP 142/65
[2017-07-31 08:23] LABS: BASOPHILS % (AUTO) 0.3 % (0.0-2.0); EOSINOPHILS % (AUTO) 1.5 % (1.0-6.0); HEMATOCRIT 37.3 % (36-46); HEMOGLOBIN 13.2 g/dL (12.0-16.0); LYMPHOCYTES # (AUTO) 1.6 K/uL (1.0-4.8); LYMPHOCYTES % (AUTO) 20.4 % (22.0-44.0); MEAN CORPUSCULAR HEMOGLOBIN 34.7 pg (26.0-34.0); MEAN CORPUSCULAR HGB CONC 35.3 G/dL (31.0-37.0); MEAN CORPUSCULAR VOLUME 98 fL (80-100); MONOCYTES # (AUTO) 0.7 K/uL (0.1-1.0); MONOCYTES % (AUTO) 9.3 % (2.0-9.0); NEUTROPHILS # (AUTO) 5.3 K/uL (1.8-7.7); NEUTROPHILS % (AUTO) 68.5 % (40.0-70.0); PLATELET COUNT (AUTO) 157 K/uL (150-450)
[2017-07-31 08:37] LABS: ANION GAP 8 mmol/L (8-16); CALCIUM, TOTAL 9.4 mg/dL (8.8-10.5); CARBON DIOXIDE 29 mmol/L (22-29); CHLORIDE 97 mmol/L (98-107); CREATININE 0.71 mg/dL (0.60-1.30); GLOMERULAR FILTR. RATE CALC > 60 mL/min (>60); GLUCOSE,RANDOM 107 mg/dL (70-110); POTASSIUM 4.2 mmol/L (3.5-5.1); SODIUM SERUM 134 mmol/L (136-145); UREA NITROGEN, BLOOD 11 mg/dL (7-18)
[2017-07-31] MEDS: HEPARIN SODIUM,PORCINE 5,000 UNITS/ML VIAL SQ SCH ×3 (08:40→23:28)
[2017-07-31] MEDS: VALPROIC ACID 250 MG/5 ML SYRUP UDCUP PEG SCH ×2 (08:40→20:07)
[2017-07-31] MEDS: LevETIRAcetam 500 MG TABLET PEG SCH ×2 (08:40→20:07)
[2017-07-31] MEDS: MULTIVITAMINS, THERAPEUTIC 15 ML UDCUP GT SCH (08:41)
[2017-07-31] MEDS: FOLIC ACID 1 MG TABLET GT SCH (08:41)
[2017-07-31] MEDS: RisperiDONE 3 MG TABLET NG SCH ×2 (08:41→20:07)
[2017-07-31] MEDS: LACOSAMIDE 100 MG TABLET PEG SCH ×2 (08:41→20:08)
[2017-07-31] MEDS: HALOPERIDOL 5 MG TABLET PO PRN ×2 (08:41→20:08)
[2017-07-31] MEDS: PANTOPRAZOLE SODIUM 40 MG DR TABLET PO SCH (08:41)
[2017-07-31] MEDS: THIAMINE HCL 100 MG TABLET GT SCH (08:42)
[2017-07-31] MEDS: DOCUSATE SODIUM 100 MG CAPSULE PO SCH ×2 (08:42→20:08)
[2017-07-31 12:00] VITALS: BP 130/70
[2017-07-31 15:03] VITALS: BP 111/71
[2017-07-31 19:15] VITALS: BP 107/66
[2017-07-31] MEDS: BENZTROPINE MESYLATE 0.5 MG TABLET PO SCH (20:07)
[2017-07-31 23:09] VITALS: BP 128/75
[2017-08-01] MEDS: AMYLASE/LIPASE/PROTEASE 60/12/38 MU DR CAPSULE GT SCH ×6 (04:10→23:58)
[2017-08-01] MEDS: HALOPERIDOL 5 MG TABLET PO PRN ×2 (04:10→22:05)
[2017-08-01 04:40] VITALS: BP 102/64
[2017-08-01] MEDS: VALPROIC ACID 250 MG/5 ML SYRUP UDCUP PEG SCH ×2 (08:08→20:10)
[2017-08-01] MEDS: MULTIVITAMINS, THERAPEUTIC 15 ML UDCUP GT SCH (08:09)
[2017-08-01] MEDS: RisperiDONE 3 MG TABLET NG SCH ×2 (08:09→20:11)
[2017-08-01] MEDS: PANTOPRAZOLE SODIUM 40 MG DR TABLET PO SCH (08:10)
[2017-08-01] MEDS: FOLIC ACID 1 MG TABLET GT SCH (08:10)
[2017-08-01] MEDS: HEPARIN SODIUM,PORCINE 5,000 UNITS/ML VIAL SQ SCH ×2 (08:10→15:23)
[2017-08-01] MEDS: THIAMINE HCL 100 MG TABLET GT SCH (08:10)
[2017-08-01] MEDS: LevETIRAcetam 500 MG TABLET PEG SCH ×2 (08:10→20:10)
[2017-08-01] MEDS: BENZTROPINE MESYLATE 1 MG TABLET PEG PRN (08:10)
[2017-08-01] MEDS: LACOSAMIDE 100 MG TABLET PEG SCH ×2 (08:11→20:11)
[2017-08-01] MEDS: DOCUSATE SODIUM 100 MG CAPSULE PO SCH ×2 (08:12→20:10)
[2017-08-01] MEDS: LORazepam 2 MG/ML VIAL IVP PRN ×3 (08:12→20:06)
[2017-08-01 09:00] VITALS: BP 121/70
[2017-08-01 12:30] VITALS: BP 109/73
[2017-08-01 15:54] VITALS: BP 103/79
[2017-08-01 20:00] VITALS: BP 109/59
[2017-08-01] MEDS: BENZTROPINE MESYLATE 0.5 MG TABLET PO SCH (20:11)
[2017-08-02 00:07] VITALS: BP 115/70
[2017-08-02] MEDS: AMYLASE/LIPASE/PROTEASE 60/12/38 MU DR CAPSULE GT SCH ×6 (04:01→23:21)
[2017-08-02 07:48] VITALS: BP 116/63
[2017-08-02] MEDS: LORazepam 2 MG/ML VIAL IVP PRN ×4 (08:15→17:39)
[2017-08-02] MEDS: DOCUSATE SODIUM 100 MG CAPSULE PO SCH ×2 (09:38→19:59)
[2017-08-02] MEDS: HALOPERIDOL 5 MG TABLET PO PRN (09:38)
[2017-08-02] MEDS: HEPARIN SODIUM,PORCINE 5,000 UNITS/ML VIAL SQ SCH ×4 (09:38→23:21)
[2017-08-02] MEDS: FOLIC ACID 1 MG TABLET GT SCH (09:39)
[2017-08-02] MEDS: THIAMINE HCL 100 MG TABLET GT SCH (09:39)
[2017-08-02] MEDS: PANTOPRAZOLE SODIUM 40 MG DR TABLET PO SCH (09:39)
[2017-08-02] MEDS: MULTIVITAMINS, THERAPEUTIC 15 ML UDCUP GT SCH (09:40)
[2017-08-02] MEDS: LevETIRAcetam 500 MG TABLET PEG SCH ×2 (09:40→19:59)
[2017-08-02] MEDS: VALPROIC ACID 250 MG/5 ML SYRUP UDCUP PEG SCH ×2 (09:41→20:00)
[2017-08-02] MEDS: RisperiDONE 3 MG TABLET NG SCH ×2 (09:41→19:59)
[2017-08-02] MEDS: LACOSAMIDE 100 MG TABLET PEG SCH ×2 (09:42→21:48)
[2017-08-02] MEDS: BENZTROPINE MESYLATE 1 MG TABLET PEG PRN ×2 (09:44→16:14)
[2017-08-02 11:00] VITALS: BP 100/58
[2017-08-02 15:05] VITALS: BP 109/59
[2017-08-02 19:00] VITALS: BP 106/63
[2017-08-02] MEDS: BENZTROPINE MESYLATE 0.5 MG TABLET PO SCH (19:59)
[2017-08-02 23:00] VITALS: BP 112/59
[2017-08-02] MEDS: LORazepam 1 MG TABLET PO PRN (23:23)
[2017-08-03] MEDS: AMYLASE/LIPASE/PROTEASE 60/12/38 MU DR CAPSULE GT SCH ×6 (04:00→23:26)
[2017-08-03 05:00] VITALS: BP 92/49
[2017-08-03 06:22] VITALS: BP 92/49
[2017-08-03 07:56] VITALS: BP 109/63
[2017-08-03] MEDS: LACOSAMIDE 100 MG TABLET PEG SCH ×2 (09:55→20:47)
[2017-08-03] MEDS: RisperiDONE 3 MG TABLET NG SCH ×2 (09:55→20:46)
[2017-08-03] MEDS: HEPARIN SODIUM,PORCINE 5,000 UNITS/ML VIAL SQ SCH ×3 (09:55→23:27)
[2017-08-03] MEDS: FOLIC ACID 1 MG TABLET GT SCH (09:56)
[2017-08-03] MEDS: DOCUSATE SODIUM 100 MG CAPSULE PO SCH ×2 (09:56→20:45)
[2017-08-03] MEDS: THIAMINE HCL 100 MG TABLET GT SCH (09:56)
[2017-08-03] MEDS: HALOPERIDOL 5 MG TABLET PO PRN ×2 (09:56→23:26)
[2017-08-03] MEDS: MULTIVITAMINS, THERAPEUTIC 15 ML UDCUP GT SCH (09:56)
[2017-08-03] MEDS: LevETIRAcetam 500 MG TABLET PEG SCH ×2 (09:56→20:44)
[2017-08-03] MEDS: VALPROIC ACID 250 MG/5 ML SYRUP UDCUP PEG SCH ×2 (09:57→20:47)
[2017-08-03] MEDS: PANTOPRAZOLE SODIUM 40 MG DR TABLET PO SCH (09:57)
[2017-08-03 11:04] VITALS: BP 92/58
[2017-08-03 15:24] VITALS: BP 109/71
[2017-08-03] MEDS: LORazepam 2 MG/ML VIAL IVP PRN (15:58)
[2017-08-03] MEDS: BENZTROPINE MESYLATE 0.5 MG TABLET PO SCH (20:45)
[2017-08-03 20:58] VITALS: BP 126/77
[2017-08-04] VITALS (7 sets, daily range): BP systolic 101–149; BP diastolic 53–87
[2017-08-04] MEDS: LORazepam 2 MG/ML VIAL IVP PRN (02:52)
[2017-08-04] MEDS: AMYLASE/LIPASE/PROTEASE 60/12/38 MU DR CAPSULE GT SCH ×6 (04:56→23:04)
[2017-08-04] MEDS: VALPROIC ACID 250 MG/5 ML SYRUP UDCUP PEG SCH ×2 (09:57→20:06)
[2017-08-04] MEDS: LevETIRAcetam 500 MG TABLET PEG SCH ×2 (09:57→20:07)
[2017-08-04] MEDS: RisperiDONE 3 MG TABLET NG SCH ×2 (09:57→20:07)
[2017-08-04] MEDS: HEPARIN SODIUM,PORCINE 5,000 UNITS/ML VIAL SQ SCH ×3 (09:58→23:04)
[2017-08-04] MEDS: DOCUSATE SODIUM 100 MG CAPSULE PO SCH ×2 (09:58→20:07)
[2017-08-04] MEDS: LACOSAMIDE 100 MG TABLET PEG SCH ×2 (09:58→20:07)
[2017-08-04] MEDS: MULTIVITAMINS, THERAPEUTIC 15 ML UDCUP GT SCH (09:58)
[2017-08-04] MEDS: THIAMINE HCL 100 MG TABLET GT SCH (09:58)
[2017-08-04] MEDS: PANTOPRAZOLE SODIUM 40 MG DR TABLET PO SCH (09:58)
[2017-08-04] MEDS: FOLIC ACID 1 MG TABLET GT SCH (09:58)
[2017-08-04] MEDS: BENZTROPINE MESYLATE 0.5 MG TABLET PO SCH (20:07)
[2017-08-04] MEDS: HALOPERIDOL 5 MG TABLET PO PRN (23:04)
[2017-08-05 04:35] VITALS: BP 126/69
[2017-08-05] MEDS: AMYLASE/LIPASE/PROTEASE 60/12/38 MU DR CAPSULE GT SCH ×6 (05:16→23:47)
[2017-08-05 07:00] VITALS: BP 130/60
[2017-08-05] MEDS: THIAMINE HCL 100 MG TABLET GT SCH (08:16)
[2017-08-05] MEDS: RisperiDONE 3 MG TABLET NG SCH ×2 (08:16→20:10)
[2017-08-05] MEDS: FOLIC ACID 1 MG TABLET GT SCH (08:16)
[2017-08-05] MEDS: MULTIVITAMINS, THERAPEUTIC 15 ML UDCUP GT SCH (08:16)
[2017-08-05] MEDS: HEPARIN SODIUM,PORCINE 5,000 UNITS/ML VIAL SQ SCH ×3 (08:16→23:50)
[2017-08-05] MEDS: VALPROIC ACID 250 MG/5 ML SYRUP UDCUP PEG SCH ×2 (08:16→20:10)
[2017-08-05] MEDS: LevETIRAcetam 500 MG TABLET PEG SCH ×2 (08:17→20:09)
[2017-08-05] MEDS: LACOSAMIDE 100 MG TABLET PEG SCH ×2 (08:17→20:10)
[2017-08-05] MEDS: LORazepam 2 MG/ML VIAL IVP PRN ×3 (09:50→21:30)
[2017-08-05] MEDS: PANTOPRAZOLE SODIUM 40 MG/VIAL IVP SCH (10:04)
[2017-08-05 12:51] VITALS: BP 126/69
[2017-08-05] MEDS: LORazepam 1 MG TABLET PO PRN (14:12)
[2017-08-05] MEDS: HALOPERIDOL 5 MG TABLET PO PRN ×2 (14:12→20:56)
[2017-08-05 15:00] VITALS: BP 107/77
[2017-08-05 20:00] VITALS: BP 110/68
[2017-08-05] MEDS: DOCUSATE SODIUM 100 MG CAPSULE PO SCH (20:10)
[2017-08-05] MEDS: BENZTROPINE MESYLATE 0.5 MG TABLET PO SCH (21:17)
[2017-08-06] VITALS (7 sets, daily range): BP systolic 91–137; BP diastolic 55–83
[2017-08-06] MEDS: AMYLASE/LIPASE/PROTEASE 60/12/38 MU DR CAPSULE GT SCH ×6 (04:04→23:59)
[2017-08-06 07:29] LABS: BASOPHILS % (AUTO) 0.4 % (0.0-2.0); EOSINOPHILS % (AUTO) 1.4 % (1.0-6.0); HEMATOCRIT 39.3 % (36-46); HEMOGLOBIN 13.6 g/dL (12.0-16.0); LYMPHOCYTES # (AUTO) 2.5 K/uL (1.0-4.8); LYMPHOCYTES % (AUTO) 25.1 % (22.0-44.0); MEAN CORPUSCULAR HEMOGLOBIN 34.2 pg (26.0-34.0); MEAN CORPUSCULAR HGB CONC 34.7 G/dL (31.0-37.0); MEAN CORPUSCULAR VOLUME 99 fL (80-100); MONOCYTES # (AUTO) 0.8 K/uL (0.1-1.0); MONOCYTES % (AUTO) 8.2 % (2.0-9.0); NEUTROPHILS # (AUTO) 6.4 K/uL (1.8-7.7); NEUTROPHILS % (AUTO) 64.9 % (40.0-70.0); PLATELET COUNT (AUTO) 184 K/uL (150-450); RED BLOOD CELL COUNT(AUTO) 3.98 MIL/uL (4.00-5.20); RED CELL DISTRIBUTION WIDTH 12.4 % (11.5-14.5)
[2017-08-06 07:36] LABS: ALANINE AMINOTRANSFERASE 12 U/L (12-78); ALBUMIN 2.8 g/dL (3.4-5.0); ALKALINE PHOSPHATASE 90 U/L (46-116); ANION GAP 6 mmol/L (8-16); ASPARTATE AMINOTRANSFERASE 19 U/L (15-37); BILIRUBIN,TOTAL 0.2 mg/dL (0.1-1.0); CALCIUM, TOTAL 9.6 mg/dL (8.8-10.5); CARBON DIOXIDE 30 mmol/L (22-29); CHLORIDE 98 mmol/L (98-107); CREATININE 0.65 mg/dL (0.60-1.30); GLOMERULAR FILTR. RATE CALC > 60 mL/min (>60); GLUCOSE,RANDOM 94 mg/dL (70-110); POTASSIUM 3.8 mmol/L (3.5-5.1); SODIUM SERUM 134 mmol/L (136-145); TOTAL PROTEIN, SERUM 6.5 g/dL (6.4-8.2); UREA NITROGEN, BLOOD 11 mg/dL (7-18)
[2017-08-06] MEDS: VALPROIC ACID 250 MG/5 ML SYRUP UDCUP PEG SCH ×2 (08:35→20:11)
[2017-08-06] MEDS: PANTOPRAZOLE SODIUM 40 MG/VIAL IVP SCH (08:35)
[2017-08-06] MEDS: HEPARIN SODIUM,PORCINE 5,000 UNITS/ML VIAL SQ SCH ×3 (08:35→23:59)
[2017-08-06] MEDS: MULTIVITAMINS, THERAPEUTIC 15 ML UDCUP GT SCH (08:35)
[2017-08-06] MEDS: DOCUSATE SODIUM 100 MG CAPSULE PO SCH ×2 (08:35→20:11)
[2017-08-06] MEDS: FOLIC ACID 1 MG TABLET GT SCH (08:36)
[2017-08-06] MEDS: LACOSAMIDE 100 MG TABLET PEG SCH ×2 (08:36→20:11)
[2017-08-06] MEDS: RisperiDONE 3 MG TABLET NG SCH ×2 (08:36→20:11)
[2017-08-06] MEDS: LevETIRAcetam 500 MG TABLET PEG SCH ×2 (08:36→20:11)
[2017-08-06] MEDS: THIAMINE HCL 100 MG TABLET GT SCH (08:36)
[2017-08-06] MEDS: LORazepam 2 MG/ML VIAL IVP PRN ×2 (08:40→18:04)
[2017-08-06] MEDS: BENZTROPINE MESYLATE 0.5 MG TABLET PO SCH (20:11)
[2017-08-06] MEDS: LORazepam 1 MG TABLET PO PRN (23:59)
[2017-08-07] MEDS: AMYLASE/LIPASE/PROTEASE 60/12/38 MU DR CAPSULE GT SCH ×5 (04:07→20:00)
[2017-08-07 04:17] VITALS: BP 94/65
[2017-08-07] MEDS: MULTIVITAMINS, THERAPEUTIC 15 ML UDCUP GT SCH (08:53)
[2017-08-07] MEDS: HEPARIN SODIUM,PORCINE 5,000 UNITS/ML VIAL SQ SCH ×2 (08:53→16:00)
[2017-08-07] MEDS: LevETIRAcetam 500 MG TABLET PEG SCH ×2 (08:54→21:00)
[2017-08-07] MEDS: THIAMINE HCL 100 MG TABLET GT SCH (08:54)
[2017-08-07] MEDS: PANTOPRAZOLE SODIUM 40 MG/VIAL IVP SCH (08:54)
[2017-08-07] MEDS: FOLIC ACID 1 MG TABLET GT SCH (08:54)
[2017-08-07] MEDS: LORazepam 2 MG/ML VIAL IVP PRN (08:54)
[2017-08-07] MEDS: DOCUSATE SODIUM 100 MG CAPSULE PO SCH ×2 (08:54→21:00)
[2017-08-07] MEDS: HALOPERIDOL 5 MG TABLET PO PRN (08:55)
[2017-08-07] MEDS: VALPROIC ACID 250 MG/5 ML SYRUP UDCUP PEG SCH ×2 (08:55→21:00)
[2017-08-07 09:00] VITALS: BP 115/83
[2017-08-07 12:16] VITALS: BP 91/54
[2017-08-07 15:26] VITALS: BP 98/65
[2017-08-07] MEDS: LACOSAMIDE 100 MG TABLET PEG SCH ×2 (15:57→21:00)
[2017-08-07] MEDS: LORazepam 1 MG TABLET PO PRN (15:57)
[2017-08-07] MEDS: RisperiDONE 3 MG TABLET NG SCH ×2 (15:57→21:00)
[2017-08-07 20:30] VITALS: BP 125/52
[2017-08-07] MEDS: BENZTROPINE MESYLATE 0.5 MG TABLET PO SCH (21:00)
[2017-08-07 23:21] VITALS: BP 105/66
[2017-08-08] VITALS (7 sets, daily range): BP systolic 89–154; BP diastolic 61–118
[2017-08-08] MEDS: HEPARIN SODIUM,PORCINE 5,000 UNITS/ML VIAL SQ SCH ×3 (00:49→15:00)
[2017-08-08 02:07] LABS: APPEARANCE,URINE TURBID (CLEAR); BILIRUBIN,URINE NEGATIVE (NEGATIVE); GLUCOSE, URINE (UA) NEGATIVE (NEGATIVE); KETONES,URINE NEGATIVE (NEGATIVE); LEUKOCYTE ESTERASE ,URINE SMALL (NEGATIVE); NITRATE,URINE NEGATIVE (NEGATIVE); OCCULT BLOOD,URINE NEGATIVE (NEGATIVE); PH,URINE 7.5 (5.0-8.0); PROTEIN,URINE NEGATIVE (NEGATIVE); UROBILINOGEN,URINE 0.2 mg/dL (<=1.0)
[2017-08-08 02:37] LABS: AMORPHOUS SEDIMENT,UR Moderate /LPF (None Seen); BACTERIA,URINE Rare /HPF (None Seen); RBC,URINE 0-2 /HPF (0-2)
[2017-08-08] MEDS: AMYLASE/LIPASE/PROTEASE 60/12/38 MU DR CAPSULE GT SCH ×6 (04:00→20:33)
[2017-08-08] MEDS: MULTIVITAMINS, THERAPEUTIC 15 ML UDCUP GT SCH (08:30)
[2017-08-08] MEDS: VALPROIC ACID 250 MG/5 ML SYRUP UDCUP PEG SCH ×2 (08:30→20:33)
[2017-08-08] MEDS: THIAMINE HCL 100 MG TABLET GT SCH (08:31)
[2017-08-08] MEDS: LevETIRAcetam 500 MG TABLET PEG SCH ×2 (08:31→20:33)
[2017-08-08] MEDS: FOLIC ACID 1 MG TABLET GT SCH (08:31)
[2017-08-08] MEDS: DOCUSATE SODIUM 100 MG CAPSULE PO SCH ×2 (08:31→20:32)
[2017-08-08] MEDS: RisperiDONE 3 MG TABLET NG SCH ×2 (08:32→20:33)
[2017-08-08] MEDS: PANTOPRAZOLE SODIUM 40 MG/VIAL IVP SCH (08:33)
[2017-08-08] MEDS: LACOSAMIDE 100 MG TABLET PEG SCH ×2 (08:33→20:32)
[2017-08-08] MEDS: LORazepam 1 MG TABLET PO PRN ×3 (08:56→20:32)
[2017-08-08] MEDS: BENZTROPINE MESYLATE 0.5 MG TABLET PO SCH (20:33)
[2017-08-09] VITALS (7 sets, daily range): BP systolic 96–155; BP diastolic 67–78
[2017-08-09] MEDS: AMYLASE/LIPASE/PROTEASE 60/12/38 MU DR CAPSULE GT SCH ×7 (00:27→23:54)
[2017-08-09] MEDS: HEPARIN SODIUM,PORCINE 5,000 UNITS/ML VIAL SQ SCH ×4 (00:27→23:54)
[2017-08-09] MEDS: LORazepam 1 MG TABLET PO PRN ×4 (09:00→23:54)
[2017-08-09] MEDS: PANTOPRAZOLE SODIUM 40 MG/VIAL IVP SCH ×2 (09:00→09:02)
[2017-08-09] MEDS: FOLIC ACID 1 MG TABLET GT SCH (09:03)
[2017-08-09] MEDS: LevETIRAcetam 500 MG TABLET PEG SCH ×2 (09:03→20:11)
[2017-08-09] MEDS: THIAMINE HCL 100 MG TABLET GT SCH (09:03)
[2017-08-09] MEDS: DOCUSATE SODIUM 100 MG CAPSULE PO SCH ×2 (09:03→20:10)
[2017-08-09] MEDS: MULTIVITAMINS, THERAPEUTIC 15 ML UDCUP GT SCH (09:03)
[2017-08-09] MEDS: RisperiDONE 3 MG TABLET NG SCH ×2 (09:04→20:10)
[2017-08-09] MEDS: LACOSAMIDE 100 MG TABLET PEG SCH ×2 (09:05→20:10)
[2017-08-09] MEDS: VALPROIC ACID 250 MG/5 ML SYRUP UDCUP PEG SCH ×2 (09:05→20:12)
[2017-08-09] MEDS: BENZTROPINE MESYLATE 0.5 MG TABLET PO SCH (20:12)
[2017-08-10] VITALS (7 sets, daily range): BP systolic 93–129; BP diastolic 52–81
[2017-08-10] MEDS: OMEPRAZOLE 20 MG CAPSULE PO SCH ×2 (05:04→09:11)
[2017-08-10] MEDS: AMYLASE/LIPASE/PROTEASE 60/12/38 MU DR CAPSULE GT SCH ×5 (05:04→20:05)
[2017-08-10] MEDS: MULTIVITAMINS, THERAPEUTIC 15 ML UDCUP GT SCH (09:10)
[2017-08-10] MEDS: THIAMINE HCL 100 MG TABLET GT SCH (09:11)
[2017-08-10] MEDS: FOLIC ACID 1 MG TABLET GT SCH (09:11)
[2017-08-10] MEDS: LevETIRAcetam 500 MG TABLET PEG SCH ×2 (09:11→20:05)
[2017-08-10] MEDS: VALPROIC ACID 250 MG/5 ML SYRUP UDCUP PEG SCH ×2 (09:11→20:05)
[2017-08-10] MEDS: HEPARIN SODIUM,PORCINE 5,000 UNITS/ML VIAL SQ SCH ×2 (09:12→16:24)
[2017-08-10] MEDS: RisperiDONE 3 MG TABLET NG SCH ×2 (09:12→20:05)
[2017-08-10] MEDS: LACOSAMIDE 100 MG TABLET PEG SCH ×2 (09:12→20:05)
[2017-08-10] MEDS: DOCUSATE SODIUM 100 MG CAPSULE PO SCH ×2 (09:14→20:05)
[2017-08-10] MEDS: LORazepam 1 MG TABLET PO PRN ×3 (11:32→20:38)
[2017-08-10] MEDS: BENZTROPINE MESYLATE 0.5 MG TABLET PO SCH (20:05)
[2017-08-11] MEDS: HEPARIN SODIUM,PORCINE 5,000 UNITS/ML VIAL SQ SCH ×2 (00:05→08:38)
[2017-08-11] MEDS: AMYLASE/LIPASE/PROTEASE 60/12/38 MU DR CAPSULE GT SCH ×4 (00:43→11:04)
[2017-08-11 05:40] VITALS: BP 107/68
[2017-08-11] MEDS: OMEPRAZOLE 20 MG CAPSULE PO SCH (06:43)
[2017-08-11] MEDS: THIAMINE HCL 100 MG TABLET GT SCH (08:38)
[2017-08-11] MEDS: LACOSAMIDE 100 MG TABLET PEG SCH (08:38)
[2017-08-11] MEDS: FOLIC ACID 1 MG TABLET GT SCH (08:38)
[2017-08-11] MEDS: DOCUSATE SODIUM 100 MG CAPSULE PO SCH (08:38)
[2017-08-11] MEDS: MULTIVITAMINS, THERAPEUTIC 15 ML UDCUP GT SCH (08:38)
[2017-08-11] MEDS: VALPROIC ACID 250 MG/5 ML SYRUP UDCUP PEG SCH (08:39)
[2017-08-11] MEDS: RisperiDONE 3 MG TABLET NG SCH (08:39)
[2017-08-11] MEDS: LevETIRAcetam 500 MG TABLET PEG SCH (08:42)
[2017-08-11 09:03] VITALS: BP 112/71
[2017-08-11] MEDS: LORazepam 1 MG TABLET PO PRN (11:04)
[2017-08-11 11:34] VITALS: BP 102/72
[2017-08-12] MEDS ORDERED: AMYL1CAP61 PO (13:09)
[2017-08-12] MEDS ORDERED: HEPA500018 SQ (13:09)
[2017-08-12] MEDS ORDERED: RISP3 PO (13:09)
[2017-08-12] MEDS ORDERED: PANT40TA25 PO (13:09)
[2017-08-12] MEDS ORDERED: DSS100 PO (13:09)
[2017-08-12] MEDS ORDERED: VALP250 PO (13:09)
== END 2017-08-11 12:37 | DRG 720 ==
LOC: EMS 19:17 → 5S 23:27 → 6N 07-17 17:00
PROVIDERS: ADMIT Internal Medicine; ATTEND Internal Medicine
PROC: 3E0234Z Introduction of Serum, Toxoid and Vaccine into Muscle, Percutaneous Approach (ICD-10-PCS; principal; 2017-07-10)
DX: A41.9 Sepsis, unspecified organism (principal); G93.1 Anoxic brain damage, not elsewhere classified; E44.0 Moderate protein-calorie malnutrition; G92 Toxic encephalopathy; R13.10 Dysphagia, unspecified; B96.20 Unspecified Escherichia coli [E. coli] as the cause of diseases classified elsewhere; G40.909 Epilepsy, unspecified, not intractable, without status epilepticus; I10 Essential (primary) hypertension; N39.0 Urinary tract infection, site not specified; R62.7 Adult failure to thrive; F29 Unspecified psychosis not due to a substance or known physiological condition; R45.1 Restlessness and agitation; Z79.899 Other long term (current) drug therapy; Z68.22 Body mass index [BMI] 22.0-22.9, adult; Z74.01 Bed confinement status; Z23 Encounter for immunization
CPT/HCPCS: 51702; 70450; 84439; 84443; 87081; 87086; 93005; 95816; 96361; 96374; 96375; 99291; C9113; G0480; J0696; J0712; J1644; J2060; J7030; J7040; J7050; J7060

== ENCOUNTER 2017-08-12 11:59 | Emergency (ER) | payer OTHER ==
[~2017-08-12] VITALS: Ht 157.5 cm; Wt 56.8 kg
[~2017-08-12 11:59] MED LIST: BENZ0.5T6 PO; BENZ1TAB10 PEG; ENOX40DI9 SQ; FOLI1 GT; LACO100 PEG; LEVE500T53 PEG; LIPA1CAP28 GT; LOPE1LIQ PO; METO25 PEG; MULT-735 GT; THIA100 GT
[2017-08-12] MEDS ORDERED: RISP3 PO (13:09)
[2017-08-12] MEDS ORDERED: DSS100 PO (13:09)
[2017-08-12] MEDS ORDERED: HEPA500018 SQ (13:09)
[2017-08-12] MEDS ORDERED: AMYL1CAP61 PO (13:09)
[2017-08-12] MEDS ORDERED: PANT40TA25 PO (13:09)
[2017-08-12] MEDS ORDERED: VALP250 PO (13:09)
[2017-08-12] MEDS ORDERED: SODIUM CHLORIDE 0.9% 1,000 ML IV ONE (15:00)
[2017-08-12 15:10] LABS: ANION GAP 12 mmol/L (8-16); BASOPHILS % (AUTO) 0.1 % (0.0-2.0); CALCIUM, TOTAL 10.1 mg/dL (8.8-10.5); CARBON DIOXIDE 29 mmol/L (22-29); CHLORIDE 93 mmol/L (98-107); CREATININE 0.91 mg/dL (0.60-1.30); EOSINOPHILS % (AUTO) 0.4 % (1.0-6.0); GLOMERULAR FILTR. RATE CALC > 60 mL/min (>60); GLUCOSE,RANDOM 117 mg/dL (70-110); HEMOGLOBIN 16.5 g/dL (12.0-16.0); LYMPHOCYTES # (AUTO) 1.8 K/uL (1.0-4.8); MEAN CORPUSCULAR HEMOGLOBIN 33.8 pg (26.0-34.0); MEAN CORPUSCULAR HGB CONC 34.3 G/dL (31.0-37.0); MEAN CORPUSCULAR VOLUME 99 fL (80-100); MONOCYTES # (AUTO) 0.9 K/uL (0.1-1.0); MONOCYTES % (AUTO) 7.3 % (2.0-9.0); NEUTROPHILS % (AUTO) 78.2 % (40.0-70.0); PLATELET COUNT (AUTO) 216 K/uL (150-450); POTASSIUM 3.8 mmol/L (3.5-5.1); RED BLOOD CELL COUNT(AUTO) 4.87 MIL/uL (4.00-5.20); RED CELL DISTRIBUTION WIDTH 12.6 % (11.5-14.5); SODIUM SERUM 134 mmol/L (136-145); UREA NITROGEN, BLOOD 9 mg/dL (7-18)
[2017-08-12 16:04] LABS: PROTHROMBIN TIME 10.6 SEC (9.4-11.6)
[2017-08-12 16:27] VITALS: BP 121/8
== END 2017-08-12 18:32 | disposition home or self-care (01) ==
LOC: EMS 12:00
DX: Z43.1 Encounter for attention to gastrostomy (principal); I10 Essential (primary) hypertension
CPT/HCPCS: 36415; 80048; 85025; 85610; 85730; 96360; 96361; 99285; J7030

== ENCOUNTER 2017-08-13 11:21 | Emergency (ER) | payer OTHER ==
[~2017-08-13] VITALS: Ht 162.6 cm; Wt 59.1 kg
[~2017-08-13 11:21] MED LIST changes: +AMYL1CAP61 PO; +DSS100 PO; -ENOX40DI9 SQ; +HEPA500018 SQ; -LIPA1CAP28 GT; -LOPE1LIQ PO; -METO25 PEG; +PANT40TA25 PO; +RISP3 PO; +VALP250 PO
[2017-08-13] MEDS ORDERED: DIATRIZOATE MEGLU/SOD 660/100 MG/ML 120 ML BOTTLE ONE (11:41)
[2017-08-13 11:54] VITALS: BP 118/82
== END 2017-08-13 13:39 | disposition home or self-care (01) ==
LOC: EMS 11:22
DX: K94.23 Gastrostomy malfunction (principal); I10 Essential (primary) hypertension
CPT/HCPCS: 36245; 49450; 99284; C1769; Q9963

== ENCOUNTER 2017-08-19 09:38 | Emergency (ER) | payer OTHER ==
[~2017-08-19] VITALS: Ht 152.4 cm; Wt 50.0 kg
[2017-08-19 10:19] LABS: BASOPHILS # (AUTO) 0.05 K/uL (0.00-0.20); BASOPHILS % (AUTO) 0.6 % (0.0-2.0); EOSINOPHILS # (AUTO) 0.06 K/uL (0.00-0.70); EOSINOPHILS % (AUTO) 0.76 % (1.0-6.0); HEMATOCRIT 39.6 % (36-46); HEMOGLOBIN 13.4 g/dL (12.0-16.0); LYMPHOCYTES # (AUTO) 1.1 K/uL (1.0-4.8); LYMPHOCYTES % (AUTO) 14.5 % (22.0-44.0); MEAN CORPUSCULAR HGB CONC 33.9 G/dL (31.0-37.0); MEAN CORPUSCULAR VOLUME 98 fL (80-100); MONOCYTES # (AUTO) 0.7 K/uL (0.1-1.0); MONOCYTES % (AUTO) 8.6 % (2.0-9.0); NEUTROPHILS # (AUTO) 5.9 K/uL (1.8-7.7); NEUTROPHILS % (AUTO) 75.6 % (40.0-70.0); PLATELET COUNT (AUTO) 181 K/uL (150-450); RED BLOOD CELL COUNT(AUTO) 4.06 MIL/uL (4.00-5.20); RED CELL DISTRIBUTION WIDTH 12.1 % (11.5-14.5)
[2017-08-19 10:29] LABS: PROTHROMBIN TIME 10.9 SEC (9.4-11.6)
[2017-08-19 10:37] LABS: ANION GAP 7 mmol/L (8-16); CARBON DIOXIDE 32 mmol/L (22-29); CHLORIDE 101 mmol/L (98-107); GLOMERULAR FILTR. RATE CALC > 60 mL/min (>60); GLUCOSE,RANDOM 107 mg/dL (70-110); POTASSIUM 3.8 mmol/L (3.5-5.1); SODIUM SERUM 140 mmol/L (136-145); UREA NITROGEN, BLOOD 14 mg/dL (7-18)
[2017-08-19 10:43] LABS: ALANINE AMINOTRANSFERASE 23 U/L (12-78); ALBUMIN 3.1 g/dL (3.4-5.0); ALKALINE PHOSPHATASE 132 U/L (46-116); ASPARTATE AMINOTRANSFERASE 22 U/L (15-37); BILIRUBIN,TOTAL 0.4 mg/dL (0.1-1.0); TOTAL PROTEIN, SERUM 7.8 g/dL (6.4-8.2)
[2017-08-19] MEDS ORDERED: LIDOCAINE HCL/PF 1% 5 ML VIAL ONE (10:50)
[2017-08-19] MEDS ORDERED: DIATRIZOATE MEGLU/SOD 660/100 MG/ML 120 ML BOTTLE ONE (10:51)
[2017-08-19 13:15] VITALS: BP 129/73
== END 2017-08-19 14:00 | disposition home or self-care (01) ==
LOC: EMS 09:40
DX: K94.23 Gastrostomy malfunction (principal); I10 Essential (primary) hypertension; Z93.1 Gastrostomy status
CPT/HCPCS: 36245; 36415; 49450; 80053; 85025; 85610; 85730; 99284; C1769; J3490; Q9963

== ENCOUNTER 2017-08-23 11:20 | Emergency (ER) | payer OTHER ==
[~2017-08-23] VITALS: Ht 165.1 cm; Wt 61.2 kg
[2017-08-23] MEDS ORDERED: SODIUM CHLORIDE 0.9% 2,000 ML IV ONE (12:30)
[2017-08-23 12:35] LABS: BASOPHILS % (AUTO) 0.2 % (0.0-2.0); EOSINOPHILS % (AUTO) 3.8 % (1.0-6.0); HEMATOCRIT 38.5 % (36-46); HEMOGLOBIN 13.5 g/dL (12.0-16.0); LYMPHOCYTES # (AUTO) 1.3 K/uL (1.0-4.8); LYMPHOCYTES % (AUTO) 12.1 % (22.0-44.0); MEAN CORPUSCULAR HEMOGLOBIN 33.5 pg (26.0-34.0); MEAN CORPUSCULAR VOLUME 96 fL (80-100); MONOCYTES # (AUTO) 0.6 K/uL (0.1-1.0); MONOCYTES % (AUTO) 5.7 % (2.0-9.0); NEUTROPHILS # (AUTO) 8.4 K/uL (1.8-7.7); NEUTROPHILS % (AUTO) 78.2 % (40.0-70.0); PLATELET COUNT (AUTO) 244 K/uL (150-450); RED BLOOD CELL COUNT(AUTO) 4.02 MIL/uL (4.00-5.20)
[2017-08-23 12:46] LABS: ANION GAP 8 mmol/L (8-16); CALCIUM, TOTAL 9.7 mg/dL (8.8-10.5); CARBON DIOXIDE 28 mmol/L (22-29); CHLORIDE 100 mmol/L (98-107); CREATININE 0.71 mg/dL (0.60-1.30); GLOMERULAR FILTR. RATE CALC > 60 mL/min (>60); GLUCOSE,RANDOM 115 mg/dL (70-110); SODIUM SERUM 136 mmol/L (136-145); UREA NITROGEN, BLOOD 14 mg/dL (7-18)
[2017-08-23 12:52] LABS: ALANINE AMINOTRANSFERASE 25 U/L (12-78); ALBUMIN 2.7 g/dL (3.4-5.0); ALKALINE PHOSPHATASE 213 U/L (46-116); ASPARTATE AMINOTRANSFERASE 27 U/L (15-37); BILIRUBIN,TOTAL 0.4 mg/dL (0.1-1.0); TOTAL PROTEIN, SERUM 7.9 g/dL (6.4-8.2)
[2017-08-23 14:45] VITALS: BP 129/85
== END 2017-08-23 15:02 | disposition home or self-care (01) ==
LOC: EMS 11:24
DX: K94.23 Gastrostomy malfunction (principal); E86.0 Dehydration; I10 Essential (primary) hypertension
CPT/HCPCS: 36415; 80053; 83880; 85025; 96360; 99284; J7030